=== PATIENT | male | born 1960 | race African-American/Black ===

== ENCOUNTER 2021-11-21 01:38 | Inpatient (IN) | payer MEDICAID, OTHER ==
[~2021-11-21] VITALS: Ht 167.6 cm; Wt 61.9 kg
[2021-11-21] MEDS ORDERED: SODIUM CHLORIDE 0.9% 1,000 ML IV ONE (03:00)
[2021-11-21 03:28] LABS: BASOPHILS % 0.3 % (0.0-2.0); EOSINOPHILS % 0.5 % (0.0-5.0); HEMATOCRIT. 36.6 % (42.0-52.0); HEMOGLOBIN. 11.8 g/dL (14.0-18.0); LYMPHOCYTES % 18.8 % (20.0-50.0); MEAN CORPUSCULAR HEMOGLOBIN 26.5 pg (28.0-32.0); MEAN CORPUSCULAR VOLUME 82.7 fL (80.0-94.0); MEAN PLATELET VOLUME 7.2 fl (7.4-10.4); MONOCYTES % 10.5 % (2.0-8.0); NEUTROPHILS % 69.9 % (40.0-76.0); PLATELET 358 x1000/uL (130-400); RED BLOOD CELL COUNT 4.43 mill/uL (4.7-6.1); RED CELL DISTRIBUTION WIDTH 16.1 % (11.6-14.6)
[2021-11-21 03:36] LABS: CHLORIDE 107 mEq/L (98-107)
[2021-11-21] MEDS ORDERED: MAGNESIUM/ALUMINUM HYDROXIDE/SIMETHICONE 30ML UDC PO PRN (07:15)
[2021-11-21] MEDS ORDERED: GUAIFENESIN 200MG/10ML SUGAR FREE UDC PO PRN (07:15)
[2021-11-21] MEDS ORDERED: NITROGLYCERIN 0.4MG TABLET SL SL PRN (07:15)
[2021-11-21] MEDS ORDERED: IPRATROPIUM/ALBUTEROL 0.5-3(2.5)MG/3ML NEB NEB PRN (07:15)
[2021-11-21] MEDS ORDERED: ONDANSETRON HCL 4MG/2ML INJ IV PRN (07:15)
[2021-11-21] MEDS ORDERED: DOCUSATE SODIUM 100MG CAPSULE PO PRN (07:15)
[2021-11-21] MEDS ORDERED: CLONIDINE 0.1MG TABLET PO PRN (07:15)
[2021-11-21] MEDS ORDERED: ZOLPIDEM TARTRATE 5MG TABLET PO PRN (07:15)
[2021-11-21] MEDS ORDERED: ACETAMINOPHEN 325MG TABLET PO PRN ×2 (07:15)
[2021-11-21] MEDS ORDERED: KETOROLAC 15MG/ML VIAL IV PRN (07:15)
[2021-11-21] MEDS ORDERED: ENOXAPARIN 40MG/0.4ML SYR SUBCUT SCH (08:00)
[2021-11-21 08:15] LABS: ETHANOL BLOOD < 10 mg/dL
[2021-11-21 08:18] LABS: HDL CHOLESTEROL 60 mg/dL (40-59); LDL CHOLESTEROL 42 mg/dL (5-100); TOTAL IRON BINDING CAPACITY 433 ug/dL (250-450)
[2021-11-21 08:32] LABS: FOLIC ACID (FOLATE) SERUM 7.7 ng/mL (>5.38)
[2021-11-21] MEDS ORDERED: METOPROLOL TARTRATE 25MG TABLET PO SCH ×2 (09:00)
[2021-11-21] MEDS ORDERED: PANTOPRAZOLE SODIUM 40 MG/VIAL IV SCH (09:00)
[2021-11-21] MEDS ORDERED: ATEN50TA MT (10:36)
[2021-11-21 11:30] VITALS: BP 170/100
[2021-11-21 12:00] VITALS: BP 154/96
[2021-11-21] MEDS ORDERED: LORAZEPAM 2MG/ML CPJ IV SCH (13:30)
== END 2021-11-21 14:05 | disposition left against medical advice (07) | DRG 347 ==
LOC: ER 01:38 → EDBD 03:58 → 8WST 03:58 → ENRESERV 10:12
PROVIDERS: ADMIT Internal Medicine; ATTEND Internal Medicine
DX: M48.061 Spinal stenosis, lumbar region without neurogenic claudication (principal); E44.1 Mild protein-calorie malnutrition; G82.20 Paraplegia, unspecified; M51.36 Other intervertebral disc degeneration, lumbar region; I10 Essential (primary) hypertension; M54.30 Sciatica, unspecified side; Z53.29 Procedure and treatment not carried out because of patient's decision for other reasons; R74.01 Elevation of levels of liver transaminase levels; G89.29 Other chronic pain; D64.9 Anemia, unspecified; M51.37 Other intervertebral disc degeneration, lumbosacral region; Z68.22 Body mass index [BMI] 22.0-22.9, adult
CPT/HCPCS: 36415; 71045; 72131; 80053; 80061; 80320; 82607; 82746; 83036; 83540; 83550; 83605; 84443; 84484; 85025; 85379; 85651; 86140; 93005; 93306; 93970; 99285; C9113; J1650; J2060; G0480

== ENCOUNTER 2021-12-24 12:31 | Emergency (ER) | payer OTHER ==
[~2021-12-24] VITALS: Ht 172.7 cm; Wt 76.0 kg
[~2021-12-24 12:31] MED LIST: ATEN50TA MT
[2021-12-24 13:03] LABS: BASOPHILS % 0.6 % (0.0-2.0); EOSINOPHILS % 0.1 % (0.0-5.0); HEMATOCRIT. 35.3 % (42.0-52.0); HEMOGLOBIN. 11.4 g/dL (14.0-18.0); LYMPHOCYTES % 21.5 % (20.0-50.0); MEAN CORPUSCULAR HEMOGLOBIN 26.3 pg (28.0-32.0); MEAN CORPUSCULAR VOLUME 81.4 fL (80.0-94.0); MEAN PLATELET VOLUME 6.6 fl (7.4-10.4); MONOCYTES % 6.7 % (2.0-8.0); NEUTROPHILS % 71.1 % (40.0-76.0); PLATELET 297 x1000/uL (130-400); RED BLOOD CELL COUNT 4.34 mill/uL (4.7-6.1); RED CELL DISTRIBUTION WIDTH 17.9 % (11.6-14.6)
[2021-12-24 13:10] LABS: CHLORIDE 109 mEq/L (98-107)
[2021-12-24] MEDS ORDERED: LEVETIRACETAM 1000MG PREMIX 100 ML IV ONE (13:15)
[2021-12-24 13:19] LABS: ETHANOL BLOOD < 10 mg/dL
[2021-12-24] MEDS ORDERED: SODIUM CHLORIDE 0.9% 1,000 ML IV ONE (13:30)
[2021-12-24] MEDS ORDERED: KETOROLAC 30MG/ML VIAL IV ONE (13:45)
[2021-12-24 15:41] LABS: CLARITY URINE TURBID (CLEAR); COLOR URINE YELLOW (YELLOW); KETONES URINE NEGATIVE (NEGATIVE); LEUKOCYTE ESTERASE URINE NEGATIVE (NEGATIVE); NITRITE URINE NEGATIVE (NEGATIVE); OCCULT BLOOD URINE NEGATIVE (NEGATIVE); PROTEIN URINE NEGATIVE (NEGATIVE); SPECIFIC GRAVITY URINE 1.018 (1.005-1.030); UROBILINOGEN URINE 0.2 E.U./dL (0.2-1.0)
[2021-12-24] MEDS ORDERED: MORPHINE SULFATE 4 MG/ML CPJ (NOT FOR IM USE) IV ONE (16:00)
[2021-12-24 16:01] LABS: *AMPHETAMINES SCREEN URINE NEGATIVE (NEGATIVE); *BARBITURATES SCREEN URINE NEGATIVE (NEGATIVE); *BENZODIAZEPINES SCREEN URINE NEGATIVE (NEGATIVE); *COCAINE SCREEN URINE NEGATIVE (NEGATIVE); CANNABINOID URINE SCREEN NEGATIVE (NEGATIVE); METHADONE URINE SCREEN NEGATIVE (NEGATIVE); OPIATES URINE SCREEN NEGATIVE (NEGATIVE); PHENCYCLIDINE URINE SCREEN NEGATIVE (NEGATIVE)
[2021-12-24] MEDS ORDERED: KEPP500 MT (16:01)
[2021-12-24 16:10] VITALS: BP 144/85
== END 2021-12-24 16:37 | disposition home or self-care (01) ==
LOC: ER 12:42
DX: G40.909 Epilepsy, unspecified, not intractable, without status epilepticus (principal); I10 Essential (primary) hypertension
CPT/HCPCS: 36415; 70450; 80053; 80305; 80320; 81003; 82962; 85025; 96365; 96366; 96375; 99284; J1885; J1953; J7030; J2270; G0480

== ENCOUNTER 2022-03-05 18:48 | Emergency (ER) | payer OTHER ==
[~2022-03-05] VITALS: Ht 170.2 cm; Wt 71.0 kg
[~2022-03-05 18:48] MED LIST changes: +KEPP500 MT
[2022-03-05] MEDS ORDERED: LEVETIRACETAM 500MG PREMIX 100 ML IV ONE (19:15)
[2022-03-05 19:29] LABS: BASOPHILS % 0.7 % (0.0-2.0); EOSINOPHILS % 0.5 % (0.0-5.0); LYMPHOCYTES % 29.5 % (20.0-50.0); MEAN CORPUSCULAR HEMOGLOBIN 28.7 pg (28.0-32.0); MEAN CORPUSCULAR VOLUME 88.1 fL (80.0-94.0); MEAN PLATELET VOLUME 6.7 fl (7.4-10.4); MONOCYTES % 8.3 % (2.0-8.0); PLATELET 267 x1000/uL (130-400); RED CELL DISTRIBUTION WIDTH 19.5 % (11.6-14.6)
[2022-03-05 19:40] LABS: CHLORIDE 105 mEq/L (98-107)
[2022-03-05 19:46] LABS: ETHANOL BLOOD < 10 mg/dL
[2022-03-05] MEDS ORDERED: KEPP500 MT (20:26)
[2022-03-05] MEDS ORDERED: ACETAMINOPHEN 325MG TABLET PO ONE (20:30)
[2022-03-05 21:45] VITALS: BP 150/92
== END 2022-03-05 22:08 | disposition home or self-care (01) ==
LOC: ER 18:48
DX: R56.9 Unspecified convulsions (principal); I10 Essential (primary) hypertension; F17.290 Nicotine dependence, other tobacco product, uncomplicated
CPT/HCPCS: 36415; 80053; 80320; 85025; 93005; 96365; 99284; J1953; G0480

== ENCOUNTER 2024-07-21 12:15 | Emergency (ER) | payer OTHER ==
[~2024-07-21] VITALS: Ht 167.6 cm; Wt 60.0 kg
[2024-07-21 12:20] VITALS: BP 131/87; PULSE 104; RESP 16; TEMP 98.4; O2SAT 96
[2024-07-21 13:17] LABS: BASOPHILS % 0.5 % (0.0-2.0); EOSINOPHILS % 0.2 % (0.0-5.0); HEMATOCRIT. 34.8 % (42.0-52.0); HEMOGLOBIN. 11.5 g/dL (14.0-18.0); LYMPHOCYTES % 14.1 % (20.0-50.0); MEAN CORPUSCULAR HEMOGLOBIN 31.8 pg (28.0-32.0); MEAN CORPUSCULAR HGB CONC 33.1 g/dL (31.0-37.0); MEAN PLATELET VOLUME 6.7 fl (7.4-10.4); NEUTROPHILS % 79.2 % (40.0-76.0); PLATELET 284 x1000/uL (130-400); RED BLOOD CELL COUNT 3.63 mill/uL (4.7-6.1); RED CELL DISTRIBUTION WIDTH 16.9 % (11.6-14.6)
[2024-07-21 13:30] LABS: CHLORIDE 108 mEq/L (98-107); POTASSIUM 4.3 mEq/L (3.5-5.1); SODIUM 140 mEq/L (136-145)
[2024-07-21 13:31] LABS: CARBON DIOXIDE 23 mEq/L (21-32)
[2024-07-21 13:32] LABS: CALCIUM 8.4 mg/dL (8.7-10.4)
[2024-07-21 13:36] LABS: CREATININE 1.2 mg/dL (0.6-1.3); GLUCOSE 92 mg/dL (70-105)
[2024-07-21 13:37] LABS: ETHANOL BLOOD 165 mg/dL (<10); UREA NITROGEN BLOOD 16 mg/dL (9-23)
[2024-07-21] MEDS: SODIUM CHLORIDE 0.9% 1,000 ML IV ONE (14:22)
[2024-07-21] MEDS ORDERED: HYDROCODONE/ACETAMINOPHEN 5/325MG TABLET PO ONE (15:00)
== END 2024-07-21 15:21 | disposition left against medical advice (07) ==
LOC: ER 12:15
DX: F10.129 Alcohol abuse with intoxication, unspecified (principal); Z53.21 Procedure and treatment not carried out due to patient leaving prior to being seen by health care provider; Y90.9 Presence of alcohol in blood, level not specified
CPT/HCPCS: 80048; 80320; 85025; 36415; J7030; Z7610 ×2; 96360; 99283; G0480